=== PATIENT | male | born 1995 | race African-American/Black ===

== ENCOUNTER 2025-01-14 16:43 | Inpatient (IN) ==
--- NOTE | 2025-01-14 17:08 | Emergency Department Note ---
Impression & Plan Closed tripod fracture of left zygomaticomaxillary complex, Fracture of mandible, jaw angle, Laceration of scalp, Fall ED Provider Note NAME: STEPHANE [id number] RALPH AGE: 29 SEX: M : 1995 ARRIVES VIA: Walk-In INFORMANT: Patient, ED PROVIDER(S): Wayne Chaudhary DO CHIEF COMPLAINT: Fall HPI: The patient is a 29-year-old male who presented to the emergency department with a fall. The patient was in the shower at the shelter. He states that he slipped and fell. He states he struck the left side of his face on the shower stall. He does have a small laceration on his occipital scalp. The patient denies having any nausea or vomiting. He does complain of a headache. He denies having any chest pain or difficulty breathing. He denies having any back pain or leg pain. The patient does not think he lost consciousness. He is up-to-date with tetanus. ROS: See above HPI for pertinent positives & negatives. A total of 10 systems reviewed and were otherwise negative. PAST MEDICAL HISTORY: See Below PAST SURGICAL HISTORY: See Below FAMILY HISTORY: See Below SOCIAL HISTORY: See Below HOME MEDICATIONS: See Below ALLERGIES: See Below VITALS: See Below PHYSICAL EXAMINATION: Primary Survey Airway: Intact Breathing: Normal, breath sounds equal bilaterally Circulation: Skin warm, distal pulses 2+, capillary refill less than 2 seconds Disability Pupils: Equal and reactive to light, 4mm, brisk GCS: 15, Motor Function: Moves all extremities. Sensory: No deficits Secondary Survey GEN: Well developed and well-nourished HEAD: There is a small laceration on the left occipital scalp. No active bleeding was noted. EYES: Pupils round reactive to light, conjunctiva clear, extraocular movements intact, no raccoons eyes ENT: No fluid in external acoustic canals, no hemotympanum, no jurado's sign, nares patent, oropharynx clear. There is significant swelling over the left mandible. There was blood at the gumline. There is no obvious open fracture. There was slight malocclusion noted. NECK: No JVD, midline trachea, no cervical spine tenderness HEART: Regular rate and rhythm LUNGS: Clear to auscultation bilaterally. CHEST: Chest wall non-tender, no bruising/deformity ABD: There is no tenderness guarding rigidity. BACK: No step offs or deformities, T-L spine non tender EXT: 2+ global pulses, moving all extremities well, +5/5 muscle strength globally NEURO: The patient is awake alert and oriented x 3. There is no focal neurologic deficit. There was no facial droop. Speech was clear. MEDICAL DECISION MAKING: The patient is a 29-year-old male who presented to the emergency department for an evaluation after a fall. The patient states he fell in the shower at the shelter. The patient has significant swelling in the left side of his face. He also had malocclusion. He also had pain with opening his mouth. The patient also had a laceration on his scalp. I discussed the patient's laboratory and radiographic studies with him. He was found have multiple facial bone fractures. These will likely require surgical intervention. I discussed his condition with the oral maxillofacial surgeon. I also discussed his condition with the [facility]. They have agreed to evaluate the patient in the emergency department for further management and disposition. The patient was treated with IV antibiotics as well as IV pain medication. Triage Nursing notes reviewed. Prior medical records reviewed Vital Signs: reviewed and remarkable for elevated blood pressure. Differential diagnosis: Fracture, dislocation, contusion, intra-abdominal, pneumothorax, intrathoracic, intracranial, neurologic, compartment syndrome, rhabdomyolysis, as well as other pathologies. ER treatment provided: See below Diagnostics interpreted by me: ECG: none Cardiac Monitoring: An order was placed for continuous cardiac monitoring. The monitor shows a rate of 73 bpm with sinus rhythm. Laboratory studies: As stated above and show below. Imaging studies: See below. Radiographic imaging was reviewed by myself Consultation(s): I discussed this case with Dr. Feliz who is on for oral maxillofacial. I discussed this case with Dr. Maldonado who is on-call for the [facility] group. ED COURSE: Procedures: Location: Scalp Total length: 2.0 cm Complexity: Simple Verbal consent was obtained after the risks and benefits were explained, including but not limited to bleeding, scarring, infection, pain, and bone/nerve damage. At this time, the risks of the procedure are less than the risks of NOT performing the procedure. A time out was taken and the correct patient and site identified. The scalp was prepped with betadine. The target area was anesthetized with 5 ml of 1% lidocaine without epinephrine. Copious irrigation was performed using saline. The skin was re-prepped with betadine, the hair cleared from the wound, and a sterile field set. The wound was explored for foreign bodies and none found. Debridement was not performed. The wound edges were approximated using 4 surgical tasha in the standard fashion. Hemostasis and excellent approximation was achieved. Antibacterial ointment and a sterile dressing applied. Detailed wound care instructions and signs and symptoms of infection reviewed with the patient. No complications and the patient tolerated the procedure well. Past Med/Surg History Problem List (Updated 01/14/25 @ 21:52 by Wayne Chaudhary DO) Fall (Acute) Laceration of scalp (Acute) Closed tripod fracture of left zygomaticomaxillary complex (Acute) Fracture of mandible, jaw angle (Acute) Swelling of face Social History Feels Safe at Home: Yes Allergies Allergies Allergy/AdvReac Type Severity Reaction Status Date / Time No Known Allergies Allergy Unverified 01/14/25 19:31 Home Meds Home Medications Medication Instructions Recorded Confirmed doxepin 25 mg capsule 25 mg PO HS 01/14/25 01/14/25 Results & Data (ED) Vital Signs Vital Signs - 24 hr 01/14/25 16:45 01/14/25 18:42 01/14/25 19:00 Temperature 36.8 C Temperature Source Temporal Artery Scan Pulse Rate 69 Pulse Rate [Finger] 63 73 Pulse Rhythm Regular Pulse Strength Normal Respiratory Rate 19 18 18 Respiratory Effort / Characteristics Non-Labored Spontaneous Non-Labored Spontaneous Respiratory Depth Normal Normal Respiratory Pattern Regular Regular Blood Pressure 119/80 Blood Pressure [Right Arm] 148/100 H 156/93 H Blood Pressure Mean 93 Blood Pressure Mean [Right Arm] 116 114 Pulse Oximetry 97 100 96 Oxygen Delivery Method Room Air Room Air Sepsis Recent Fever Within 48 Hours No Sepsis New/Unexplained Change in Mental Status No Sepsis Action Taken by Nursing No Action Required 01/14/25 19:04 01/14/25 19:30 01/14/25 20:00 Temperature Temperature Source Pulse Rate 73 Pulse Rate [Finger] 69 73 Pulse Rhythm Pulse Strength Respiratory Rate 18 16 Respiratory Effort / Characteristics Non-Labored Spontaneous Non-Labored Spontaneous Respiratory Depth Normal Normal Respiratory Pattern Regular Regular Blood Pressure Blood Pressure [Right Arm] 153/106 H 128/75 Blood Pressure Mean Blood Pressure Mean [Right Arm] 121 92 Pulse Oximetry 98 97 Oxygen Delivery Method Room Air Room Air Sepsis Recent Fever Within 48 Hours Sepsis New/Unexplained Change in Mental Status Sepsis Action Taken by Nursing 01/14/25 20:30 01/14/25 21:00 Temperature Temperature Source Pulse Rate Pulse Rate [Finger] 79 73 Pulse Rhythm Pulse Strength Respiratory Rate 16 16 Respiratory Effort / Characteristics Non-Labored Spontaneous Non-Labored Spontaneous Respiratory Depth Normal Normal Respiratory Pattern Regular Regular Blood Pressure Blood Pressure [Right Arm] 140/84 154/81 H Blood Pressure Mean Blood Pressure Mean [Right Arm] 102 105 Pulse Oximetry 97 96 Oxygen Delivery Method Room Air Room Air Sepsis Recent Fever Within 48 Hours Sepsis New/Unexplained Change in Mental Status Sepsis Action Taken by [facility] Medications Current Medication List: was personally reviewed by me Laboratory Data Attestation: I reviewed the patient's lab results. 01/14/25 17:17 01/14/25 17:17 Lab Results 01/14/25 01/14/25 Range/Units 17:17 19:51 WBC 4.45 L (4.8-10.8) K/ul RBC 4.76 (4.70-6.10) M/uL Hgb 14.3 (14.0-18.0) g/dl Hct 42.6 (42.0-52.0) % MCV 89.5 (80.0-100.0) fL MCH 30.0 (25.0-34.0) pg MCHC 33.6 (32.0-36.0) g/dL RDW Std Deviation 43.2 (36.4-46.3) fL RDW Coeff of Tyshawn 13.2 (11.5-14.5) % Plt Count 252 (130-400) K/uL MPV 10.3 (9.4-12.4) fL Immature Gran % (Auto) 0.4 % Neut % (Auto) 65.5 % Lymph % (Auto) 22.5 % Holmes % (Auto) 8.1 % Eos % (Auto) 3.1 % Baso % (Auto) 0.4 % Neut # (Auto) 2.91 (1.40-6.50) K/uL Lymph # (Auto) 1.00 L (1.20-3.40) K/uL Holmes # (Auto) 0.36 (0.11-0.59) K/uL Eos # (Auto) 0.14 (0.00-0.50) K/uL Baso # (Auto) 0.02 (0.00-0.20) K/uL Immature Gran # (Auto) 0.02 (0.01-0.20) K/uL PT Cancelled 11.4 INR Cancelled 1.1 APTT Cancelled 31 PTT Ratio Cancelled 1.2 Sodium 138 (136-145) mmol/L Potassium 4.4 (3.5-5.1) mmol/L Chloride 104 (98-107) mmol/L Carbon Dioxide 28 (21-32) mmol/L Anion Gap 6 (3-11) BUN 14 (6-23) mg/dl Creatinine 1.06 (0.6-1.4) mg/dl Est Cr Clr Drug Dosing 138.7 ml/min eGFR 98.65 BUN/Creatinine Ratio 13.2 (10-20) Glucose 93 (70-99(Fasting)) mg/dl Calcium 9.8 (8.6-10.3) mg/dl Total Bilirubin 0.6 (0.2-1.0) mg/dl AST 30 (13-39) U/L ALT 19 (7-52) U/L Alkaline Phosphatase 57 (34-104) U/L Total Protein 8.4 H (6.0-8.3) gm/dl Albumin 4.7 (3.4-5.0) gm/dl Globulin 3.7 (2.5-4.0) gm/dl Albumin/Globulin Ratio 1.3 (0.9-2) Lipase 32 (11-82) U/L Administered Medications Hydromorphone HCl (Hydromorphone Inj 0.5 Mg/0.5 Ml Syr) 0.5 mg IV Q15M PRN PRN Reason: Pain Stop: 01/28/25 18:58 Last Admin: 01/14/25 20:45 Dose: 0.5 mg Documented By: Admin: 01/14/25 19:47 Dose: 0.5 mg Documented By: Admin: 01/14/25 19:05 Dose: 0.5 mg Documented By: JANE Discontinued Medications Hydromorphone HCl (Hydromorphone Inj 0.5 Mg/0.5 Ml Syr) 0.5 mg IV NOW STA Stop: 01/14/25 21:22 Last Admin: 01/14/25 21:33 Dose: 0.5 mg Documented By: JANE Sodium Chloride (Nss) 500 mls @ 999 mls/hr IV .Q31M MARLA Stop: 01/14/25 17:45 Last Infusion: 01/14/25 18:14 Dose: Infused Documented By: Admin: 01/14/25 17:28 Dose: 999 mls/hr Documented By: TE Ampicillin Sodium/Sulbactam Sodium (Unasyn) 3,000 mg in 100 mls @ 200 mls/hr IV NOW STA Stop: 01/14/25 17:32 Last Infusion: 01/14/25 18:14 Dose: Infused Documented By: Admin: 01/14/25 17:27 Dose: 200 mls/hr Documented By: TE Acetaminophen (Ofirmev) 1,000 mg in 100 mls @ 400 mls/hr IV NOW STA Stop: 01/14/25 21:35 Last Admin: 01/14/25 21:32 Dose: 400 mls/hr Documented By: JANE Lidocaine (Lidocaine/Epineph/Tetracaine 1 Ea Syr) 1 each EXT NOW STA Stop: 01/14/25 17:59 Last Admin: 01/14/25 18:08 Dose: 1 each Documented By: TE Lidocaine HCl (Lidocaine 1% Local 20 Ml Vial) 5 ml INFIL NOW ONE Stop: 01/14/25 18:30 Last Admin: 01/14/25 19:04 Dose: 5 ml Documented By: JANE Morphine Sulfate (Morphine Sulfate 4 Mg/Ml 1 Ml Carp\Vial) 4 mg IV NOW STA Stop: 01/14/25 17:04 Last Admin: 01/14/25 17:26 Dose: 4 mg Documented By: TE Morphine Sulfate (Morphine Sulfate 4 Mg/Ml 1 Ml Carp\Vial) 4 mg IV NOW STA Stop: 01/14/25 17:59 Last Admin: 01/14/25 18:08 Dose: 4 mg Documented By: TE Ondansetron HCl (Ondansetron Inj 2 Mg/Ml 2 Ml Vial) 4 mg IV NOW STA Stop: 01/14/25 17:04 Last Admin: 01/14/25 17:26 Dose: 4 mg Documented By: TE Imaging Data Attestation: I personally reviewed and interpreted this imaging study as follows: My Impression: CT of the brain was obtained in the emergency department. My interpretation is no intracranial hemorrhage or mass effect, final report below. Radiologist's Impression: Cervical Spine CT 01/14/25 17:03 Clinical history: Trauma Technique: Axial computed tomography images were obtained of the cervical spine without intravenous contrast. Sagittal and coronal reconstructions were obtained Findings: No definite cervical spine fracture is identified. There is a mild T1 compression fracture, likely old but of indeterminate age. No listhesis is seen. No focal osseous lesion is evident. The atlantoaxial articulation appears unremarkable. At C2-3, no disc herniation is identified. There is no spinal stenosis. The neural foramen are patent At C3-4, no disc herniation is identified. There is no spinal stenosis. The neural foramen are patent At C4-5, no disc herniation is identified. There is no spinal stenosis. The neural foramen are patent At C5-6, no disc herniation is identified. There is no spinal stenosis. The neural foramen are patent At C6-7, no disc herniation is identified. There is no spinal stenosis. The neural foramen are patent At C7-T1,no disc herniation is identified. There is no spinal stenosis. The neural foramen are patent The lung apices appear clear. The visualized soft tissues of the neck appear unremarkable. No foreign body is seen Impression: 1. No definite pathology of the cervical spine 2. Suspected mild T1 compression fracture, likely old but of indeterminate age Electronically signed by David Adkins 01-14-2025 6:01 PM Chest X-Ray 01/14/25 17:03 Clinical History: Trauma Technique: A frontal view of the chest was obtained Findings: There are no confluent pulmonary infiltrates. The heart size is within normal limits. No pleural effusion or pneumothorax is seen. There is no definite pulmonary nodule. No fracture is noted. No foreign body is seen Impression: No active disease Electronically signed by David Adkins 01-14-2025 5:[address] 01/14/25 17:03 Clinical history: Trauma Technique: Axial computed tomography images were obtained of the facial bones without intravenous contrast. Sagittal and coronal reconstructions were obtained Findings: There is an acute depressed comminuted fracture of the left zygomatic arch, with angulation and mild displacement of fracture fragments. There is an acute nondisplaced fracture of the left mandibular angle. No focal osseous lesion is noted. The temporomandibular joints appear unremarkable. There is mild mucosal thickening of the frontal, ethmoid and maxillary sinuses. No air-fluid level is seen. The ostiomeatal units appear patent bilaterally. The mastoid air cells appear clear The orbits appear unremarkable. No foreign body is seen. The nasal septum is mildly deviated. No definite nasal polyp is noted Impression: 1. Comminuted fracture of the left zygomatic arch with mild displacement and angulation of fracture fragments 2. Nondisplaced fracture of the left mandibular angle ACT 112: Positive. There are findings on this exam that require communication between the performing entity and the patient following Patient Test Result Information Act ([place] ACT 112) guidelines. Electronically signed by David Adkins 01-14-2025 5:[address] 01/14/25 17:03 CT head without contrast History: Trauma Comparison: None Technique: Using multidetector thin collimation helical acquisition technique, axial, coronal and sagittal CT images from the skull base to the vertex were obtained without intravenous contrast. Dose reduction techniques were achieved by using automatic exposure control and/or adjustment of mA and/or kV according to patient size and/or use of iterative reconstruction technique. Findings: No intracranial hemorrhage, mass-effect, or midline shift. The ventricles are proportionate to the cerebral sulci. The silva to white matter differentiation of the cerebral hemispheres is preserved. The basal cisterns are patent. The visualized paranasal sinuses are clear. Mastoid air cells are clear. Impression: No acute intracranial pathology. Electronically signed by Bryan Espinoza 01-14-2025 5:50 PM Pelvis X-Ray 01/14/25 17:03 Study: Pelvis 1 view History: Trauma Comparison: None Findings: There is no acute fracture or dislocation. Alignment is anatomic. Joint spaces are well maintained. There is no joint effusion or significant soft tissue swelling. Bone mineralization is normal. Impression: No acute bony abnormality Electronically signed by Bryan Espinoza 01-14-2025 5:27 PM Discharge Plan Visit Data Chief Complaint: Fall Stated Complaint: FALL ED Provider: Wayne Chaudhary Discharge Problem: Closed tripod fracture of left zygomaticomaxillary complex, Fracture of mandible, jaw angle, Laceration of scalp, Fall Patient Disposition: Being Evaluated by Hospitalist Condition: Fair Forms Stand Alone Forms: [facility] [place] Prescriptions Prescriptions: No Action doxepin 25 mg Capsule 25 mg PO HS Referrals Referrals: PCP,NO [Physician] -
[2025-01-14] MEDS: ONDANSETRON INJ 2 MG/ML 2 ML VIAL IV STA (17:26)
[2025-01-14] MEDS: MoRPHine SULFATE 4 MG/ML 1 ML CARP\\VIAL IV STA ×2 (17:26→18:08)
[2025-01-14] MEDS: AMPICILLIN/SULBACTAM SOD 3,000 MG/100 ML BAG IV STA (17:27)
--- NOTE | 2025-01-14 17:27 | XRay Report ---
Clinical History: Trauma Technique: A frontal view of the chest was obtained Findings: There are no confluent pulmonary infiltrates. The heart size is within normal limits. No pleural effusion or pneumothorax is seen. There is no definite pulmonary nodule. No fracture is noted. No foreign body is seen Impression: No active disease Electronically signed by David Adkins 01-14-2025 5:27 PM
[2025-01-14] MEDS: SODIUM CHLORIDE 0.9% 500 ML IV SCH (17:28)
--- NOTE | 2025-01-14 17:28 | XRay Report ---
Study: Pelvis 1 view History: Trauma Comparison: None Findings: There is no acute fracture or dislocation. Alignment is anatomic. Joint spaces are well maintained. There is no joint effusion or significant soft tissue swelling. Bone mineralization is normal. Impression: No acute bony abnormality Electronically signed by Bryan Espinoza 01-14-2025 5:27 PM
[2025-01-14 17:46] LABS: Alanine Aminotransferase 19.0 U/L (7-52); Albumin Globulin Ratio 1.3 (0.9-2); Alkaline Phosphatase 57.0 U/L (34-104); Anion Gap 6.0 (3-11); Bilirubin,Total 0.6 mg/dl (0.2-1.0); Blood Urea Nitrogen 14.0 mg/dl (6-23); Calcium 9.8 mg/dl (8.6-10.3); Carbon Dioxide 28.0 mmol/L (21-32); Chloride 104.0 mmol/L (98-107); Creatinine Clr Calc Pharmacy 138.7 ml/min; Globulin 3.7 gm/dl (2.5-4.0); Glucose 93.0 mg/dl (70-99(Fasting)); Lipase 32.0 U/L (11-82); Potassium 4.4 mmol/L (3.5-5.1); Sodium 138.0 mmol/L (136-145); Total Protein 8.4 gm/dl (6.0-8.3)
--- NOTE | 2025-01-14 17:51 | CT Scan Report ---
CT head without contrast History: Trauma Comparison: None Technique: Using multidetector thin collimation helical acquisition technique, axial, coronal and sagittal CT images from the skull base to the vertex were obtained without intravenous contrast. Dose reduction techniques were achieved by using automatic exposure control and/or adjustment of mA and/or kV according to patient size and/or use of iterative reconstruction technique. Findings: No intracranial hemorrhage, mass-effect, or midline shift. The ventricles are proportionate to the cerebral sulci. The silva to white matter differentiation of the cerebral hemispheres is preserved. The basal cisterns are patent. The visualized paranasal sinuses are clear. Mastoid air cells are clear. Impression: No acute intracranial pathology. Electronically signed by Bryan Espinoza 01-14-2025 5:50 PM
[2025-01-14 17:55] LABS: Hematocrit (blood only) 42.6 % (42.0-52.0); Hemoglobin 14.3 g/dl (14.0-18.0); Mean Corpuscular Volume 89.5 fL (80.0-100.0); Red Blood Count 4.76 M/uL (4.70-6.10); White Blood Count 4.45 K/ul (4.8-10.8)
[2025-01-14 17:56] LABS: Immature Granulocytes # (auto) 0.02 K/uL (0.01-0.20); Immature Granulocytes % (auto) 0.4 %; Mean Corpuscular Hemoglobin 30.0 pg (25.0-34.0); Platelet Count 252 K/uL (130-400); RDW Standard Deviation 43.2 fL (36.4-46.3)
--- NOTE | 2025-01-14 18:00 | CT Scan Report ---
Clinical history: Trauma Technique: Axial computed tomography images were obtained of the facial bones without intravenous contrast. Sagittal and coronal reconstructions were obtained Findings: There is an acute depressed comminuted fracture of the left zygomatic arch, with angulation and mild displacement of fracture fragments. There is an acute nondisplaced fracture of the left mandibular angle. No focal osseous lesion is noted. The temporomandibular joints appear unremarkable. There is mild mucosal thickening of the frontal, ethmoid and maxillary sinuses. No air-fluid level is seen. The ostiomeatal units appear patent bilaterally. The mastoid air cells appear clear The orbits appear unremarkable. No foreign body is seen. The nasal septum is mildly deviated. No definite nasal polyp is noted Impression: 1. Comminuted fracture of the left zygomatic arch with mild displacement and angulation of fracture fragments 2. Nondisplaced fracture of the left mandibular angle ACT 112: Positive. There are findings on this exam that require communication between the performing entity and the patient following Patient Test Result Information Act ([place] ACT 112) guidelines. Electronically signed by David Adkins 01-14-2025 5:59 PM
--- NOTE | 2025-01-14 18:03 | CT Scan Report ---
Clinical history: Trauma Technique: Axial computed tomography images were obtained of the cervical spine without intravenous contrast. Sagittal and coronal reconstructions were obtained Findings: No definite cervical spine fracture is identified. There is a mild T1 compression fracture, likely old but of indeterminate age. No listhesis is seen. No focal osseous lesion is evident. The atlantoaxial articulation appears unremarkable. At C2-3, no disc herniation is identified. There is no spinal stenosis. The neural foramen are patent At C3-4, no disc herniation is identified. There is no spinal stenosis. The neural foramen are patent At C4-5, no disc herniation is identified. There is no spinal stenosis. The neural foramen are patent At C5-6, no disc herniation is identified. There is no spinal stenosis. The neural foramen are patent At C6-7, no disc herniation is identified. There is no spinal stenosis. The neural foramen are patent At C7-T1,no disc herniation is identified. There is no spinal stenosis. The neural foramen are patent The lung apices appear clear. The visualized soft tissues of the neck appear unremarkable. No foreign body is seen Impression: 1. No definite pathology of the cervical spine 2. Suspected mild T1 compression fracture, likely old but of indeterminate age Electronically signed by David Adkins 01-14-2025 6:01 PM
[2025-01-14] MEDS: LIDOCAINE/EPINEPH/TETRACAINE 1 EA SYR EXT STA (18:08)
[2025-01-14] MEDS: LIDOCAINE 1% LOCAL 20 ML VIAL INFIL ONE (19:04)
[2025-01-14] MEDS: HYDROmorphone INJ 0.5 MG/0.5 ML SYR IV PRN (19:05)
[2025-01-14 21:07] LABS: INR 1.1 (0.9-1.1); Partial Thromboplastin Time 31 Seconds (21-31); Prothrombin Time 11.4 Seconds (9.0-12.0)
--- NOTE | 2025-01-14 21:27 | Oral/Maxillofacial Consult ---
Date of Consultation January 14, 2025 Assessment & Plan (1) Closed tripod fracture of left zygomaticomaxillary complex: left side depressed (2) Swelling of face: (3) Fracture of mandible, jaw angle: (4) Fall: (5) Laceration of scalp: History of Present Illness History of Present Illness Oral Maxillofacial Surgery Exam I saw Anna this morning in room 259. His left face is swollen, and the left ZMOC is depressed. He has difficulty opening his mouth but the occlusion is stable and reproducible. I do not feel any surgical treatment for the left angle fracture is needed as this looks to be a green stick non displaced fracture, soft diet for 3-4 will be needed. As for the left ZMOC an open approach is needed through the lateral brow area. The swelling will need to subside for 24 hours - will have his use ice and I will start steroids with surgery Sat am at 7:30. Present Complaint: I have pain left face from recent trauma Symptoms have been ongoing for 24 hours HPI: The patient is a 29-year-old male who presented to the emergency department with a fall. The patient was in the shower at the detention. He states that he slipped and fell. He states he struck the left side of his face on the shower stall. He does have a small laceration on his occipital scalp. The patient denies having any nausea or vomiting. He does complain of a headache. He denies having any chest pain or difficulty breathing. He denies having any back pain or leg pain. The patient does not think he lost consciousness. He is up-to-date with tetanus. Fractured left ZMOC, non displaced left angle fracture Oral Exam: Finding--normal exam , occlusion stable limited opening due to left ZMOC fracture and left angle fracture (green stick) Imaging: CT scan maxillofacial Clinical history: Trauma Findings: There is an acute depressed comminuted fracture of the left zygomatic arch, with angulation and mild displacement of fracture fragments. There is an acute nondisplaced fracture of the left mandibular angle. No focal osseous lesion is noted. The temporomandibular joints appear unremarkable. There is mild mucosal thickening of the frontal, ethmoid and maxillary sinuses. No air-fluid level is seen. The ostiomeatal units appear patent bilaterally. The mastoid air cells appear clear The orbits appear unremarkable. No foreign body is seen. The nasal septum is mildly deviated. No definite nasal polyp is noted Impression: 1. Comminuted fracture of the left zygomatic arch with mild displacement and angulation of fracture fragments 2. Nondisplaced fracture of the left mandibular angle Soft tissue: Swollen left lateral face and side of the jaw The floor of the mouth, tongue, hard/soft palate, posterior pharyngeal area all with in normal limits, no pathology or abnormal findings noted. Oral Care: Overall oral care is good Occlusion: Class I crowding but stable bite no shift, no pain on posterior pressure in the TMJ or lateral jaw area. Will treat left angle fracture with diet only no need for fixation or plating TMJ exam: limited opening from the fracture Periodontal exam: Healthy gingival tissue without evidence of periodontal pathology. Head/Neck exam: Neck is supple, FROM, Able to extend and flex neck w/o difficulty, no masses, no abnormalities, no airway issues, Treatment Plan: Set up with general anesthesia in hospitall due to complexity of the procedure I reviewed the treatment plan and consent with the patient Understanding was expressed. Time was given for questions regarding the surgery, risks and post op care. Discussed alternative to treatment--procedure as planned, Do not do surgery Open reduction left ZMOC Risks discussed: Bleeding,Pain,swelling,infection,delayed healing, nerve injury to face,lips,tongue,chin area which could be permanent (rare). TMJ, jaw stiffness, change in bite (rare), ear pain (referred). Sinus problems like congestion, fistula or infection. Surgery to be set up once swelling subsides hopefully January 16 PHYSICAL EXAMINATION: Primary Survey Airway: Intact Breathing: Normal, breath sounds equal bilaterally Circulation: Skin warm, distal pulses 2+, capillary refill less than 2 seconds Disability Pupils: Equal and reactive to light, 4mm, brisk GCS: 15, Motor Function: Moves all extremities. Sensory: No deficits Secondary Survey GEN: Well developed and well-nourished HEAD: There is a small laceration on the left occipital scalp. No active bleeding was noted. EYES: Pupils round reactive to light, conjunctiva clear, extraocular movements intact, no raccoons eyes ENT: No fluid in external acoustic canals, no hemotympanum, no jurado's sign, nares patent, oropharynx clear. There is significant swelling over the left mandible. There was blood at the gumline. There is no obvious open fracture. There was slight malocclusion noted. NECK: No JVD, midline trachea, no cervical spine tenderness HEART: Regular rate and rhythm LUNGS: Clear to auscultation bilaterally. CHEST: Chest wall non-tender, no bruising/deformity ABD: There is no tenderness guarding rigidity. BACK: No step offs or deformities, T-L spine non tender EXT: 2+ global pulses, moving all extremities well, +5/5 muscle strength globally NEURO: The patient is awake alert and oriented x 3. There is no focal neur ologic deficit. There was no facial droop. Speech was clear. ED COURSE: Procedures: Location: Scalp Total length: 2.0 cm Complexity: Simple Verbal consent was obtained after the risks and benefits were explained, including but not limited to bleeding, scarring, infection, pain, and bone/nerve damage. At this time, the risks of the procedure are less than the risks of NOT performing the procedure. A time out was taken and the correct patient and site identified. The scalp was prepped with betadine. The target area was anesthetized with 5 ml of 1% lidocaine without epinephrine. Copious irrigation was performed using saline. The skin was re-prepped with Betadine, the hair marcial ared from the wound, and a sterile field set. The wound was explored for foreign bodies and none found. Debridement was not performed. The wound edges were approximated using 4 surgical tasah in the standard fashion. Hemostasis and excellent approximation was achieved. Antibacterial ointment and a sterile dressing applied. Detailed wound care instructions and signs and symptoms of infection reviewed with the patient. No complications and the patient tolerated the procedure well. Vital Signs - 24 hr 01/15/2516:45 01/14/2518:42 01/14/2519:00 Temperature 36.8 C Temperature Source Temporal Artery Scan Pulse Rate 69 Pulse Rate [Finger] 63 73 Pulse Rhythm Regular Pulse Strength Normal Respiratory Rate 19 18 18 Respiratory Effort / Characteristics Non-Labored Spontaneous Non-Labored Spontaneous Respiratory Depth Normal Normal Respiratory Pattern Regular Regular Blood Pressure 119/80 Blood Pressure [Right Arm] 148/100 H 156/93 H Blood Pressure Mean 93 Blood Pressure Mean [Right Arm] 116 114 Pulse Oximetry 97 100 96 Oxygen Delivery Method Room Air Room Air Sepsis Recent Fever Within 48 Hours No Sepsis New/Unexplained Change in Mental Status No Sepsis Action Taken by Nursing No Action Required 01/14/2519:04 Temperature Temperature Source Pulse Rate 73 Pulse Rate [Finger] Pulse Rhythm Pulse Strength Respiratory Rate Respiratory Effort / Characteristics Respiratory Depth Respiratory Pattern Blood Pressure Blood Pressure [Right Arm] Blood Pressure Mean Blood Pressure Mean [Right Arm] Pulse Oximetry Oxygen Delivery Method Sepsis Recent Fever Within 48 Hours Sepsis New/Unexplained Change in Mental Status Sepsis Action Taken by Nursing Lab Results 01/14/25 Range/Units 17:17 WBC 4.45 L (4.8-10.8) K/ul RBC 4.76 (4.70-6.10) M/uL Hgb 14.3 (14.0-18.0) g/dl Hct 42.6 (42.0-52.0) % MCV 89.5 (80.0-100.0) fL MCH 30.0 (25.0-34.0) pg MCHC 33.6 (32.0-36.0) g/dL RDW Std Deviation 43.2 (36.4-46.3) fL RDW Coeff of Tyshawn 13.2 (11.5-14.5) % Plt Count 252 (130-400) K/uL MPV 10.3 (9.4-12.4) fL Immature Gran % (Auto) 0.4 % Neut % (Auto) 65.5 % Lymph % (Auto) 22.5 % [place] % (Auto) 8.1 % Eos % (Auto) 3.1 % Baso % (Auto) 0.4 % Neut # (Auto) 2.91 (1.40-6.50) K/uL Lymph # (Auto) 1.00 L (1.20-3.40) K/uL [place] # (Auto) 0.36 (0.11-0.59) K/uL Eos # (Auto) 0.14 (0.00-0.50) K/uL Baso # (Auto) 0.02 (0.00-0.20) K/uL Immature Gran # (Auto) 0.02 (0.01-0.20) K/uL PT Cancelled INR Cancelled APTT Cancelled PTT Ratio Cancelled Sodium 138 (136-145) mmol/L Potassium 4.4 (3.5-5.1) mmol/L Chloride 104 (98-107) mmol/L Carbon Dioxide 28 (21-32) mmol/L Anion Gap 6 (3-11) BUN 14 (6-23) mg/dl Creatinine 1.06 (0.6-1.4) mg/dl Est Cr Clr Drug Dosing 138.7 ml/min eGFR 98.65 BUN/Creatinine Ratio 13.2 (10-20) Glucose 93 (70-99(Fasting)) mg/dl Calcium 9.8 (8.6-10.3) mg/dl Total Bilirubin 0.6 (0.2-1.0) mg/dl AST 30 (13-39) U/L ALT 19 (7-52) U/L Alkaline Phosphatase 57 (34-104) U/L Total Protein 8.4 H (6.0-8.3) gm/dl Albumin 4.7 (3.4-5.0) gm/dl Globulin 3.7 (2.5-4.0) gm/dl Albumin/Globulin Ratio 1.3 (0.9-2) Lipase 32 (11-82) U/L Allergies Allergy/AdvReac Type Severity Reaction Status Date / Time No Known Allergies Allergy Unverified 01/14/25 19:31 Home Medications Medication Instructions Recorded Confirmed Type doxepin 25 mg capsule 25 mg PO HS 01/14/25 01/14/25 History Patient History Social History Smoking Status: Current every day smoker Tobacco Type: E-cigarettes / Vaping Hx Alcohol Use: No Hx Substance Use: Yes Last Used Substance Other:: 6 years ago Preferred Language: Upper Sorbian Nozzleman Required: No Beliefs That Will Affect Care: None Current Living Situation: Other Current Living Situation Comment: [facility] Feels Safe at Home: Yes Results & Data Vital Signs (Past 12 Hours) Vital Signs Temp Pulse Pulse Resp BP BP Pulse Ox 01/14/25 21:00 73 16 154/81 H 96 01/14/25 20:30 79 16 140/84 97 01/14/25 20:00 73 16 128/75 97 01/14/25 19:30 69 18 153/106 H 98 01/14/25 19:04 73 01/14/25 19:00 73 18 156/93 H 96 01/14/25 18:42 63 18 148/100 H 100 01/14/25 16:45 36.8 C 69 19 119/80 97 O2 Del Method 01/14/25 21:00 Room Air 01/14/25 20:30 Room Air 01/14/25 20:00 Room Air 01/14/25 19:30 Room Air 01/14/25 19:04 01/14/25 19:00 Room Air 01/14/25 18:42 01/14/25 16:45 Room Air PG Care Time/CCT Total # of Minutes Spent Total Time Spent with Patient: Total time spent is greater than 50% in coordination of care (as documented) at patient's floor/unit and/or counseling patient: Coding Level of Care Code 73924 IN/OBS CONSULT LVL 3,45M Diagnoses Closed tripod fracture of left zygomaticomaxillary complex S02.40FA; S02.40DA; S02.842A Swelling of face R22.0 Closed fracture of left mandibular angle, initial encounter S02.652A Encounter type: initial encounter Fracture type: closed Laterality: left Fall, subsequent encounter W19.XXXD Encounter type: subsequent encounter Laceration of scalp, subsequent encounter S01.01XD Encounter type: subsequent encounter CPT Codes OPEN [place] COMPLX MALAR FX - 61840 ([id number]) (3) Fracture of mandible, jaw angle Encounter type: initial encounter Fracture type: closed Laterality: left Qualified Code(s): S02.652A - Fracture of angle of left mandible, initial encounter for closed fracture (4) Fall Encounter type: subsequent encounter Qualified Code(s): W19.XXXD - Unspecified fall, subsequent encounter (5) Laceration of scalp Encounter type: subsequent encounter Qualified Code(s): S01.01XD - Laceration without foreign body of scalp, subsequent encounter
[2025-01-14] MEDS: ACETAMINOPHEN 1,000 MG/100 ML VIAL IV STA (21:32)
[2025-01-14] MEDS: HYDROmorphone INJ 0.5 MG/0.5 ML SYR IV STA (21:33)
--- NOTE | 2025-01-14 22:05 | History & Physical Report ---
Date of Service January 14, 2025 Assessment & Plan (1) Closed tripod fracture of left zygomaticomaxillary complex: Plan: 29-year-old male coming from residential with past medical history significant for insomnia and takes doxepin presents with fall. Patient states he slipped in the shower and fell on his face. States he might have lost consciousness for about a second when he hit his head. When he tried to get up ,he again slipped and fell on his arm. Finally he was able to get out of the shower. He noticed severe pain in his face and was brought to the ER. Imaging studies in the ER shows left mandibular and zygomatic arch fracture. ER spoke to maxillofacial surgery and there is a plan for surgery in a.m. Patient complaining of severe pain at injury site. Denies any blurred vision. Patient states no dizziness or palpitations or chest pain prior to fall. No nausea. No abdominal pain. Patient states had a fever about a 1 week ago but then after that no fevers. No nausea or vomiting. No diarrhea or constipation. Currently resting comfortably and hemodynamics are okay. Status post fall Closed Tripod fracture of left zygomaticomaxillary complex Left Mandibular fracture Plan for surgery in a.m. N.p.o. at midnight IV fluids Pain control Labs are okay. Vital stable. Should be at acceptable risk to proceed with surgery IV Unasyn DVT prophylaxis SCDs Disposition Med/telemetry Full code. History of Present Illness Chief Complaint: Status post fall. Left mandibular and zygomatic arch fracture Primary Care Provider: ARRON Murphy 29-year-old male coming from residential with past medical history significant for insomnia and takes doxepin presents with fall. Patient states he slipped in the shower and fell on his face. States he might have lost consciousness for about a second when he hit his head. When he tried to get up ,he again slipped and fell on his arm. Finally he was able to get out of the shower. He noticed severe pain in his face and was brought to the ER. Imaging studies in the ER shows left mandibular and zygomatic arch fracture. ER spoke to maxillofacial surgery and there is a plan for surgery in a.m. Patient complaining of severe pain at injury site. Denies any blurred vision. Patient states no dizziness or palpitations or chest pain prior to fall. No nausea. No abdominal pain. Patient states had a fever about a 1 week ago but then after that no fevers. No nausea or vomiting. No diarrhea or constipation. Currently resting comfortably and hemodynamics are okay. Past medical history. As mentioned above. Past surgical history. Denies any surgeries. Social history. Smokes e-cigarettes. Denies alcohol use. Used to take Subutex in the past about 2 years ago. Family history. Denies any family history. Allergies Allergy/AdvReac Type Severity Reaction Status Date / Time No Known Allergies Allergy Unverified 01/14/25 19:31 Home Medications Medication Instructions Recorded Confirmed Type doxepin 25 mg capsule 25 mg PO HS 01/14/25 01/14/25 History Past Med/Surg History Problem List (Updated 01/14/25 @ 21:52 by Wayne Chaudhary DO) Fall (Acute) Laceration of scalp (Acute) Closed tripod fracture of left zygomaticomaxillary complex (Acute) Fracture of mandible, jaw angle (Acute) Swelling of face Social History Smoking Status: Current every day smoker Tobacco Type: E-cigarettes / Vaping Hx Alcohol Use: No Hx Substance Use: Yes Last Used Substance Other:: 6 years ago Preferred Language: Scottish Career Advisor Required: No Beliefs That Will Affect Care: None Current Living Situation: Other Current Living Situation Comment: [facility] Feels Safe at Home: Yes Review of Systems Review of Systems: All systems reviewed & are unremarkable except as noted in HPI & below Physical Exam Physical Exam: General-Not in distress Head- Swelling of left side of face. Difficulty opening the mouth Eyes- PERRL. Neck- supple, no JVD. Lungs- clear to auscultation no wheezing or crackles Heart- regular rate and rhythm; no murmur, no gallop. Abdomen- normal bowel sounds, soft, nontender, no distension. Extremities- no pretibial edema, no erythema seen Neuro- alert, oriented PERRL, no dysarthria; moves extremities Results & Data Results & Data Vital Signs (Past 12 Hours) Vital Signs Temp Pulse Pulse Resp BP BP Pulse Ox 01/14/25 21:00 73 16 154/81 H 96 01/14/25 20:30 79 16 140/84 97 01/14/25 20:00 73 16 128/75 97 01/14/25 19:30 69 18 153/106 H 98 01/14/25 19:04 73 01/14/25 19:00 73 18 156/93 H 96 01/14/25 18:42 63 18 148/100 H 100 01/14/25 16:45 36.8 C 69 19 119/80 97 O2 Del Method 01/14/25 21:00 Room Air 01/14/25 20:30 Room Air 01/14/25 20:00 Room Air 01/14/25 19:30 Room Air 01/14/25 19:04 01/14/25 19:00 Room Air 01/14/25 18:42 01/14/25 16:45 Room Air Diagnostic Findings Laboratory Results WBC 4.45 K/ul (4.8-10.8) L 01/14/25 17:17 RBC 4.76 M/uL (4.70-6.10) 01/14/25 17:17 Hgb 14.3 g/dl (14.0-18.0) 01/14/25 17:17 Hct 42.6 % (42.0-52.0) 01/14/25 17:17 MCV 89.5 fL (80.0-100.0) 01/14/25 17:17 MCH 30.0 pg (25.0-34.0) 01/14/25 17:17 MCHC 33.6 g/dL (32.0-36.0) 01/14/25 17:17 RDW Std Deviation 43.2 fL (36.4-46.3) 01/14/25 17:17 RDW Coeff of Tyshawn 13.2 % (11.5-14.5) 01/14/25 17:17 Plt Count 252 K/uL (130-400) 01/14/25 17:17 MPV 10.3 fL (9.4-12.4) 01/14/25 17:17 Immature Gran % (Auto) 0.4 % 01/14/25 17:17 Neut % (Auto) 65.5 % 01/14/25 17:17 Lymph % (Auto) 22.5 % 01/14/25 17:17 [place] % (Auto) 8.1 % 01/14/25 17:17 Eos % (Auto) 3.1 % 01/14/25 17:17 Baso % (Auto) 0.4 % 01/14/25 17:17 Neut # (Auto) 2.91 K/uL (1.40-6.50) 01/14/25 17:17 Lymph # (Auto) 1.00 K/uL (1.20-3.40) L 01/14/25 17:17 [place] # (Auto) 0.36 K/uL (0.11-0.59) 01/14/25 17:17 Eos # (Auto) 0.14 K/uL (0.00-0.50) 01/14/25 17:17 Baso # (Auto) 0.02 K/uL (0.00-0.20) 01/14/25 17:17 Immature Gran # (Auto) 0.02 K/uL (0.01-0.20) 01/14/25 17:17 PT 11.4 Seconds (9.0-12.0) 01/14/25 19:51 INR 1.1 (0.9-1.1) 01/14/25 19:51 APTT 31 Seconds (21-31) 01/14/25 19:51 PTT Ratio 1.2 01/14/25 19:51 Sodium 138 mmol/L (136-145) 01/14/25 17:17 Potassium 4.4 mmol/L (3.5-5.1) 01/14/25 17:17 Chloride 104 mmol/L (98-107) 01/14/25 17:17 Carbon Dioxide 28 mmol/L (21-32) 01/14/25 17:17 Anion Gap 6 (3-11) 01/14/25 17:17 BUN 14 mg/dl (6-23) 01/14/25 17:17 Creatinine 1.06 mg/dl (0.6-1.4) 01/14/25 17:17 Est Cr Clr Drug Dosing 138.7 ml/min 01/14/25 17:17 eGFR 98.65 01/14/25 17:17 BUN/Creatinine Ratio 13.2 (10-20) 01/14/25 17:17 Glucose 93 mg/dl (70-99(Fasting)) 01/14/25 17:17 Calcium 9.8 mg/dl (8.6-10.3) 01/14/25 17:17 Total Bilirubin 0.6 mg/dl (0.2-1.0) 01/14/25 17:17 AST 30 U/L (13-39) 01/14/25 17:17 ALT 19 U/L (7-52) 01/14/25 17:17 Alkaline Phosphatase 57 U/L (34-104) 01/14/25 17:17 Total Protein 8.4 gm/dl (6.0-8.3) H 01/14/25 17:17 Albumin 4.7 gm/dl (3.4-5.0) 01/14/25 17:17 Globulin 3.7 gm/dl (2.5-4.0) 01/14/25 17:17 Albumin/Globulin Ratio 1.3 (0.9-2) 01/14/25 17:17 Lipase 32 U/L (11-82) 01/14/25 17:[address] 01/14/25 17:03 Clinical history: Trauma Technique: Axial computed tomography images were obtained of the cervical spine without intravenous contrast. Sagittal and coronal reconstructions were obtained Findings: No definite cervical spine fracture is identified. There is a mild T1 compression fracture, likely old but of indeterminate age. No listhesis is seen. No focal osseous lesion is evident. The atlantoaxial articulation appears unremarkable. At C2-3, no disc herniation is identified. There is no spinal stenosis. The neural foramen are patent At C3-4, no disc herniation is identified. There is no spinal stenosis. The neural foramen are patent At C4-5, no disc herniation is identified. There is no spinal stenosis. The neural foramen are patent At C5-6, no disc herniation is identified. There is no spinal stenosis. The neural foramen are patent At C6-7, no disc herniation is identified. There is no spinal stenosis. The neural foramen are patent At C7-T1,no disc herniation is identified. There is no spinal stenosis. The neural foramen are patent The lung apices appear clear. The visualized soft tissues of the neck appear unremarkable. No foreign body is seen Impression: 1. No definite pathology of the cervical spine 2. Suspected mild T1 compression fracture, likely old but of indeterminate age Electronically signed by David Adkins 01-14-2025 6:01 PM Chest X-Ray 01/14/25 17:03 Clinical History: Trauma Technique: A frontal view of the chest was obtained Findings: There are no confluent pulmonary infiltrates. The heart size is within normal limits. No pleural effusion or pneumothorax is seen. There is no definite pulmonary nodule. No fracture is noted. No foreign body is seen Impression: No active disease Electronically signed by David Adkins 01-14-2025 5:[address] 01/14/25 17:03 Clinical history: Trauma Technique: Axial computed tomography images were obtained of the facial bones without intravenous contrast. Sagittal and coronal reconstructions were obtained Findings: There is an acute depressed comminuted fracture of the left zygomatic arch, with angulation and mild displacement of fracture fragments. There is an acute nondisplaced fracture of the left mandibular angle. No focal osseous lesion is noted. The temporomandibular joints appear unremarkable. There is mild mucosal thickening of the frontal, ethmoid and maxillary sinuses. No air-fluid level is seen. The ostiomeatal units appear patent bilaterally. The mastoid air cells appear clear The orbits appear unremarkable. No foreign body is seen. The nasal septum is mildly deviated. No definite nasal polyp is noted Impression: 1. Comminuted fracture of the left zygomatic arch with mild displacement and angulation of fracture fragments 2. Nondisplaced fracture of the left mandibular angle ACT 112: Positive. There are findings on this exam that require communication between the performing entity and the patient following Patient Test Result Information Act ([place] ACT 112) guidelines. Electronically signed by David Adkins 01-14-2025 5:[address] 01/14/25 17:03 CT head without contrast History: Trauma Comparison: None Technique: Using multidetector thin collimation helical acquisition technique, axial, coronal and sagittal CT images from the skull base to the vertex were obtained without intravenous contrast. Dose reduction techniques were achieved by using automatic exposure control and/or adjustment of mA and/or kV according to patient size and/or use of iterative reconstruction technique. Findings: No intracranial hemorrhage, mass-effect, or midline shift. The ventricles are proportionate to the cerebral sulci. The silva to white matter differentiation of the cerebral hemispheres is preserved. The basal cisterns are patent. The visualized paranasal sinuses are clear. Mastoid air cells are clear. Impression: No acute intracranial pathology. Electronically signed by Bryan Espinoza 01-14-2025 5:50 PM Pelvis X-Ray 01/14/25 17:03 Study: Pelvis 1 view History: Trauma Comparison: None Findings: There is no acute fracture or dislocation. Alignment is anatomic. Joint spaces are well maintained. There is no joint effusion or significant soft tissue swelling. Bone mineralization is normal. Impression: No acute bony abnormality Electronically signed by Bryan Espinoza 01-14-2025 5:27 PM Code Status & VTE Plan VTE Prophylaxis Plan VTE Prophylaxis will be ordered: Yes
[2025-01-15] MEDS ORDERED: ONDANSETRON INJ 2 MG/ML 2 ML VIAL IV PRN (00:17)
[2025-01-15] MEDS: AMPICILLIN/SULBACTAM SOD 3,000 MG/100 ML BAG IV SCH (00:44)
[2025-01-15] MEDS: HYDROmorphone INJ 0.5 MG/0.5 ML SYR IV PRN ×2 (01:19→11:56)
[2025-01-15] MEDS: LACTATED RINGER'S 1,000 ML IV SCH (01:20)
[2025-01-15 06:51] LABS: Hematocrit (blood only) 39.8 % (42.0-52.0); Hemoglobin 13.1 g/dl (14.0-18.0); Immature Granulocytes # (auto) 0.02 K/uL (0.01-0.20); Immature Granulocytes % (auto) 0.4 %; Mean Corpuscular Hemoglobin 29.6 pg (25.0-34.0); Mean Corpuscular Volume 89.8 fL (80.0-100.0); Platelet Count 229 K/uL (130-400); RDW Standard Deviation 43.7 fL (36.4-46.3); Red Blood Count 4.43 M/uL (4.70-6.10); White Blood Count 5.11 K/ul (4.8-10.8)
[2025-01-15 07:17] LABS: Anion Gap 6.0 (3-11); Blood Urea Nitrogen 10.0 mg/dl (6-23); Calcium 8.9 mg/dl (8.6-10.3); Carbon Dioxide 28.0 mmol/L (21-32); Chloride 105.0 mmol/L (98-107); Creatinine Clr Calc Pharmacy 166.3 ml/min; Glucose 84.0 mg/dl (70-99(Fasting)); Magnesium 2.0 mg/dl (1.7-2.4); Potassium 3.7 mmol/L (3.5-5.1); Sodium 139.0 mmol/L (136-145)
[2025-01-15 07:21] LABS: Toxic Vacuolation 2+
[2025-01-15] MEDS: ACETAMINOPHEN 1,000 MG/100 ML VIAL IV PRN (07:46)
--- NOTE | 2025-01-15 14:43 | Hospitalist Progress Note ---
Date of Service January 15, 2025 Assessment & Plan (1) Closed tripod fracture of left zygomaticomaxillary complex: Plan: 29-year-old male coming from [facility] with past medical history significant for insomnia and takes doxepin presents admitted post fall. Patient states he slipped in the shower and fell on his face. States he might have lost consciousness for about a second when he hit his head. Status post fall with closed tripod fracture of left zygomaticomaxillary complex and left mandibular fracture Plan for surgery tomorrow a.m. after swelling is down N.p.o. at midnight IV fluids Pain control Labs are okay. Should be at acceptable risk to proceed with surgery IV Unasyn DVT prophylaxis SCDs Full code. Admission and Anticipated Discharge Date Admission Date: January 14, 2025 Subjective Chart, data and vital signs were reviewed. The vital signs are stable. Patient was seen at bedside with [facility] guards in attendance. Patient states he still having significant pain from the jaw fracture. He is scheduled for OR tomorrow. He is allowed clear liquids until then. Review of Systems Review of Systems: Constitutional- no fever; no weight loss Eyes- no acute visual changes ENT- no sinus drainage; no pharyngitis, has significant pain from jaw fracture Pulmonary- no cough, no wheezing, no shortness of breath Cardiac- no chest pain, no palpitations, no orthopnea, no dependent edema GI- no nausea, no vomiting, no diarrhea, no melena, no hematochezia - no dysuria, no hematuria Neuro- no headaches, no focal neurologic symptoms Psych- no anxiety, no depression Physical Exam Physical Exam: General- adult male seen at bedside Head- atraumatic Eyes- PERRL, EOMI, anicteric ENT- oropharynx clear Neck- supple, no JVD, no adenopathy, no thyromegaly; Lungs- clear to auscultation and percussion Heart- regular rhythm; no murmur, no gallop, no rub appreciated Abdomen- normal bowel sounds, soft, nontender, no masses or hepatosplenomegaly Extremities- no pretibial edema, no calf tenderness; peripheral pulses intact Neuro- alert, oriented x 3; PERRL, EOMI; no focal deficits Skin- warm & dry Results & Data Results & Data Vital Signs (Past 12 Hours) Vital Signs Temp Pulse Pulse Resp BP BP Pulse Ox 07/25/25 14:20 53 L 01/15/25 11:28 36.7 C 63 17 117/76 96 01/15/25 07:42 36.7 C 54 L 17 109/73 96 01/15/25 07:24 81 01/15/25 03:58 36.6 C 55 L 18 107/69 96 O2 Del Method 01/15/25 14:20 01/15/25 11:28 Room Air 01/15/25 07:42 Room Air 01/15/25 07:24 01/15/25 03:58 Room Air Laboratory Results Short CBC 01/14/25 01/15/25 Range/Units 17:17 06:27 WBC 4.45 L 5.11 (4.8-10.8) K/ul Hgb 14.3 13.1 L (14.0-18.0) g/dl Hct 42.6 39.8 L (42.0-52.0) % Plt Count 252 229 (130-400) K/uL BMP 01/14/25 01/15/25 17:17 06:27 Sodium 138 139 Potassium 4.4 3.7 Chloride 104 105 Carbon Dioxide 28 28 BUN 14 10 Creatinine 1.06 0.91 Glucose 93 84 Calcium 9.8 8.9 Liver Function 01/14/25 Range/Units 17:17 Total Bilirubin 0.6 (0.2-1.0) mg/dl AST 30 (13-39) U/L ALT 19 (7-52) U/L Alkaline Phosphatase 57 (34-104) U/L Albumin 4.7 (3.4-5.0) gm/dl Diagnostic Findings Laboratory Results WBC 5.11 K/ul (4.8-10.8) 01/15/25 06:27 RBC 4.43 M/uL (4.70-6.10) L 01/15/25 06:27 Hgb 13.1 g/dl (14.0-18.0) L 01/15/25 06:27 Hct 39.8 % (42.0-52.0) L 01/15/25 06:27 MCV 89.8 fL (80.0-100.0) 01/15/25 06:27 MCH 29.6 pg (25.0-34.0) 01/15/25 06:27 MCHC 32.9 g/dL (32.0-36.0) 01/15/25 06: RDW Std Deviation 43.7 fL (36.4-46.3) 01/15/25 06: RDW Coeff of Tyshawn 13.2 % (11.5-14.5) 01/15/25 06: Plt Count 229 K/uL (130-400) 01/15/25 06: MPV 9.5 fL (9.4-12.4) 01/15/25 06: Immature Gran % (Auto) 0.4 % 01/15/25 06: Neut % (Auto) 63.7 % 01/15/25 06: Lymph % (Auto) 23.1 % 01/15/25 06: Carolina % (Auto) 10.2 % 01/15/25 06: Eos % (Auto) 2.2 % 01/15/25 06: Baso % (Auto) 0.4 % 01/15/25 06: Neut # (Auto) 3.26 K/uL (1.40-6.50) 01/15/25 06:27 Lymph # (Auto) 1.18 K/uL (1.20-3.40) L 01/15/25 06:27 Carolina # (Auto) 0.52 K/uL (0.11-0.59) 01/15/25 06:27 Eos # (Auto) 0.11 K/uL (0.00-0.50) 01/15/25 06: Baso # (Auto) 0.02 K/uL (0.00-0.20) 01/15/25 06:27 Immature Gran # (Auto) 0.02 K/uL (0.01-0.20) 01/15/25 06:27 Toxic Vacuolation 2+ 01/14/25 17:17 PT 11.4 Seconds (9.0-12.0) 01/14/25 19:51 INR 1.1 (0.9-1.1) 01/14/25 19:51 APTT 31 Seconds (21-31) 01/14/25 19:51 PTT Ratio 1.2 01/14/25 19:51 Sodium 139 mmol/L (136-145) 01/15/25 06:27 Potassium 3.7 mmol/L (3.5-5.1) 01/15/25 06:27 Chloride 105 mmol/L (98-107) 01/15/25 06:27 Carbon Dioxide 28 mmol/L (21-32) 01/15/25 06:27 Anion Gap 6 (3-11) 01/15/25 06:27 BUN 10 mg/dl (6-23) 01/15/25 06:27 Creatinine 0.91 mg/dl (0.6-1.4) 01/15/25 06:27 Est Cr Clr Drug Dosing 166.3 ml/min 01/15/25 06:27 eGFR 118.47 01/15/25 06:27 BUN/Creatinine Ratio 11.0 (10-20) 01/15/25 06:27 Glucose 84 mg/dl (70-99(Fasting)) 01/15/25 06:27 Calcium 8.9 mg/dl (8.6-10.3) 01/15/25 06:27 Magnesium 2.0 mg/dl (1.7-2.4) 01/15/25 06:27 Total Bilirubin 0.6 mg/dl (0.2-1.0) 01/14/25 17:17 AST 30 U/L (13-39) 01/14/25 17:17 ALT 19 U/L (7-52) 01/14/25 17:17 Alkaline Phosphatase 57 U/L (34-104) 01/14/25 17:17 Total Protein 8.4 gm/dl (6.0-8.3) H 01/14/25 17:17 Albumin 4.7 gm/dl (3.4-5.0) 01/14/25 17:17 Globulin 3.7 gm/dl (2.5-4.0) 01/14/25 17:17 Albumin/Globulin Ratio 1.3 (0.9-2) 01/14/25 17:17 Lipase 32 U/L (11-82) 01/14/25 17:17 Nasal Screen MRSA (PCR) Negative (Negative) 01/15/25 01:[address] 01/14/25 17:03 Clinical history: Trauma Technique: Axial computed tomography images were obtained of the cervical spine without intravenous contrast. Sagittal and coronal reconstructions were obtained Findings: No definite cervical spine fracture is identified. There is a mild T1 compression fracture, likely old but of indeterminate age. No listhesis is seen. No focal osseous lesion is evident. The atlantoaxial articulation appears unremarkable. At C2-3, no disc herniation is identified. There is no spinal stenosis. The neural foramen are patent At C3-4, no disc herniation is identified. There is no spinal stenosis. The neural foramen are patent At C4-5, no disc herniation is identified. There is no spinal stenosis. The neural foramen are patent At C5-6, no disc herniation is identified. There is no spinal stenosis. The neural foramen are patent At C6-7, no disc herniation is identified. There is no spinal stenosis. The neural foramen are patent At C7-T1,no disc herniation is identified. There is no spinal stenosis. The neural foramen are patent The lung apices appear clear. The visualized soft tissues of the neck appear unremarkable. No foreign body is seen Impression: 1. No definite pathology of the cervical spine 2. Suspected mild T1 compression fracture, likely old but of indeterminate age Electronically signed by David Adkins 01-14-2025 6:01 PM Chest X-Ray 01/14/25 17:03 Clinical History: Trauma Technique: A frontal view of the chest was obtained Findings: There are no confluent pulmonary infiltrates. The heart size is within normal limits. No pleural effusion or pneumothorax is seen. There is no definite pulmonary nodule. No fracture is noted. No foreign body is seen Impression: No active disease Electronically signed by David Adkins 01-14-2025 5:[address] 01/14/25 17:03 Clinical history: Trauma Technique: Axial computed tomography images were obtained of the facial bones without intravenous contrast. Sagittal and coronal reconstructions were obtained Findings: There is an acute depressed comminuted fracture of the left zygomatic arch, with angulation and mild displacement of fracture fragments. There is an acute nondisplaced fracture of the left mandibular angle. No focal osseous lesion is noted. The temporomandibular joints appear unremarkable. There is mild mucosal thickening of the frontal, ethmoid and maxillary sinuses. No air-fluid level is seen. The ostiomeatal units appear patent bilaterally. The mastoid air cells appear clear The orbits appear unremarkable. No foreign body is seen. The nasal septum is mildly deviated. No definite nasal polyp is noted Impression: 1. Comminuted fracture of the left zygomatic arch with mild displacement and angulation of fracture fragments 2. Nondisplaced fracture of the left mandibular angle ACT 112: Positive. There are findings on this exam that require communication between the performing entity and the patient following Patient Test Result Information Act ([place] ACT 112) guidelines. Electronically signed by David Adkins 01-14-2025 5:[address] 01/14/25 17:03 CT head without contrast History: Trauma Comparison: None Technique: Using multidetector thin collimation helical acquisition technique, axial, coronal and sagittal CT images from the skull base to the vertex were obtained without intravenous contrast. Dose reduction techniques were achieved by using automatic exposure control and/or adjustment of mA and/or kV according to patient size and/or use of iterative reconstruction technique. Findings: No intracranial hemorrhage, mass-effect, or midline shift. The ventricles are proportionate to the cerebral sulci. The silva to white matter differentiation of the cerebral hemispheres is preserved. The basal cisterns are patent. The visualized paranasal sinuses are clear. Mastoid air cells are clear. Impression: No acute intracranial pathology. Electronically signed by Bryan Espinoza 01-14-2025 5:50 PM Pelvis X-Ray 01/14/25 17:03 Study: Pelvis 1 view History: Trauma Comparison: None Findings: There is no acute fracture or dislocation. Alignment is anatomic. Joint spaces are well maintained. There is no joint effusion or significant soft tissue swelling. Bone mineralization is normal. Impression: No acute bony abnormality Electronically signed by Bryan Espinoza 01-14-2025 5:27 PM
[2025-01-15] MEDS: MoRPHine SULFATE 10 MG/0.5 ML UDP PO PRN (17:31)
[2025-01-15] MEDS: DOXEPIN HCL 25 MG CAPSULE PO SCH (20:46)
--- NOTE | 2025-01-15 22:26 | Electrocardiogram Report ---
Test Reason : Blood Pressure : */* mmHG Vent. Rate : 64 BPM Atrial Rate : 64 BPM P-R Int : 214 ms QRS Dur : 90 ms QT Int : 402 ms P-R-T Axes : 45 31 26 degrees QTcB Int : 414 ms Sinus rhythm with 1st degree A-V block Cannot rule out Anterior infarct , age undetermined Abnormal ECG No previous ECGs available Confirmed by Albin Dias ([id number]) on 01/15/2025 10:25:45 PM Referred By: [facility] Confirmed By: Albin Dias
[2025-01-16] MEDS: HYDROmorphone INJ 0.5 MG/0.5 ML SYR IV STA (01:31)
[2025-01-16 06:29] LABS: Hematocrit (blood only) 37.3 % (42.0-52.0); Hemoglobin 12.7 g/dl (14.0-18.0); Mean Corpuscular Hemoglobin 30.5 pg (25.0-34.0); Mean Corpuscular Volume 89.7 fL (80.0-100.0); Platelet Count 237 K/uL (130-400); RDW Standard Deviation 42.7 fL (36.4-46.3); Red Blood Count 4.16 M/uL (4.70-6.10); White Blood Count 3.78 K/ul (4.8-10.8)
[2025-01-16 06:48] LABS: Anion Gap 5.0 (3-11); Blood Urea Nitrogen 5.0 mg/dl (6-23); Calcium 8.8 mg/dl (8.6-10.3); Carbon Dioxide 30.0 mmol/L (21-32); Chloride 106.0 mmol/L (98-107); Creatinine Clr Calc Pharmacy 159.9 ml/min; Glucose 87.0 mg/dl (70-99(Fasting)); Potassium 3.8 mmol/L (3.5-5.1); Sodium 141.0 mmol/L (136-145)
--- NOTE | 2025-01-16 08:08 | History & Physical Bridge Note ---
Date of Service January 16, 2025 History & Physical Bridge Note I have examined the patient, reviewed the History & Physical and in the interval since the performance of the History & Physical I have noted the following changes of clinical significance: no changes noted. OK for the open reduction left ZMOC
--- NOTE | 2025-01-16 08:18 | Progress Note ---
Date of Service January 16, 2025 Assessment & Plan Admission and Anticipated Discharge Date Admission Date: January 14, 2025 Subjective The swelling has decreased to the point that I can do the open reduction of the left ZMOC fracture. He does have a green stick fracture of the lower jaw (left angle and ? between teeth 27-28. Ther is no displacement, a very stable occlusion. I see no indication for any surgery or fixation as long as he maintains a soft diet for at least 3 weeks this fracture will heal uneventfully. The plan is for the reduction of the Left ZMOC today with discharge tomorrow. My office will communicate with [facility] regarding need for the soft diet, keep out of general population to avoid getting hit or pushed and follow up with my office. Soft diet is essential to allow the fractured lower jaw to heal Also avoiding pressure on the left cheek is needed to allow the left cheek bone fracture to heal as well. Results & Data Vital Signs (Past 12 Hours) Vital Signs Temp Pulse Pulse Resp BP BP Pulse Ox 01/16/25 07:42 36.7 C 52 L 18 122/76 98 01/16/25 07:16 50 L 01/16/25 03:49 36.4 C L 53 L 20 128/85 99 01/16/25 00:09 36.7 C 54 L 20 135/83 97 01/15/25 22:05 51 L O2 Del Method 01/16/25 07:42 Room Air 01/16/25 07:16 01/16/25 03:49 Room Air 01/16/25 00:09 Room Air 01/15/25 22:05 PG Care Time/CCT Total # of Minutes Spent Total Time Spent with Patient: Total time spent is greater than 50% in coordination of care (as documented) at patient's floor/unit and/or counseling patient: Coding Level of Care Code None
[2025-01-16] MEDS ORDERED: LIDOCAINE 2% 20 MG/ML 5 ML SYR IV ONE (08:22)
[2025-01-16] MEDS ORDERED: PROPOFOL IV EMULSION 10 MG/ML 20 ML VIAL IV ONE ×2 (08:22→09:05)
[2025-01-16] MEDS ORDERED: DEXAMETHASONE SOD INJ 4 MG/ML VIAL ONE (08:22)
[2025-01-16] MEDS ORDERED: ONDANSETRON INJ 2 MG/ML 2 ML VIAL ONE (08:22)
[2025-01-16] MEDS ORDERED: MIDAZOLAM HCL 1 MG/ML 2ML VIAL ONE (08:23)
[2025-01-16] MEDS ORDERED: ROCURONIUM BROMIDE 10 MG/ML 5 ML VIAL IV ONE ×2 (08:25→08:43)
[2025-01-16] MEDS ORDERED: DexMEDEtomidine HCL IV 100 MCG/ML VIAL IV ONE (08:36)
[2025-01-16] MEDS ORDERED: ATROPINE SULFATE 0.1 MG/ML 10ML SYR IV PRN (08:36)
--- NOTE | 2025-01-16 08:36 | Anesthesiology Consultation ---
Date of Service January 16, 2025 Assessment & Plan Chart Review Chart Review: Acceptable Risk for Surgery and Patient NOT seen in Pre Admission Testing Consults Requested none History Surgery Operation Date: 01/16/25 07:30 Proposed Procedures p Open Reduction Left Cheekbone Fracture - Sanjay Feliz, MARIJA Height/Weight Height: 6 ft 2 in Weight: 118.7 kg Allergies Allergy/AdvReac Type Severity Reaction Status Date / Time No Known Allergies Allergy Unverified 01/14/25 19:31 Medications Home Medications Medication Instructions Recorded Confirmed Last Taken doxepin 25 mg capsule 25 mg PO HS 01/14/25 01/14/25 01/14/25 Active Medications Generic Name Dose Route Start Last Admin Trade Name Freq PRN Reason Stop Dose Admin Doxepin HCl 25 mg 01/15/25 21:00 01/15/25 20:46 Doxepin Hcl 25 Mg Capsule PO 02/14/25 20:59 Not Given HS MARLA Hydroxyzine HCl 10 mg 01/15/25 11:37 01/15/25 16:27 Hydroxyzine Hcl 10 Mg Tab PO 02/14/25 11:36 10 mg Q8 PRN Administration Anxiety/Agitation Lactated Ringer's 1,000 mls @ 125 mls/hr 01/15/25 00:17 01/16/25 06:22 Lr IV 01/18/25 00:16 125 mls/hr .Q8H MARLA Infusion Acetaminophen 1,000 mg in 100 mls @ 400 mls/hr 01/15/25 00:17 01/15/25 08:06 Ofirmev IV 01/18/25 00:16 Infused Q8H PRN Infusion Pain or Fever Ampicillin Sodium/Sulbactam Sodium 3,000 mg in 100 mls @ 200 mls/hr 01/15/25 00:30 01/16/25 06:22 Unasyn IV 01/22/25 00:29 Infused Q6 MARLA Infusion Morphine Sulfate 10 mg 01/15/25 16:30 01/16/25 06:23 Morphine Sulfate 10 Mg/0.5 Ml Udp PO 01/29/25 16:29 10 mg Q3HWA PRN Administration Pain Social History Smoking Status: Current every day smoker Hx Alcohol Use: No Hx Substance Use: Yes substance use type: marijuana Last Used Substance Other:: 6 years ago Physical Exam Vital Signs Last Vital Signs Temp 36.7 C 01/16/25 07:42 Pulse 52 L 01/16/25 07:42 Resp 18 01/16/25 07:42 BP 122/76 01/16/25 07:42 Pulse Ox 98 01/16/25 07:42 O2 Del Method Room Air 01/16/25 07:42 Testing Laboratory Results 01/16/25 05:41 01/16/25 05:41 PT 11.4 Seconds (9.0-12.0) 01/14/25 19:51 INR 1.1 (0.9-1.1) 01/14/25 19:51 APTT 31 Seconds (21-31) 01/14/25 19:51
[2025-01-16] MEDS ORDERED: ARTIFICIAL TEARS OP OINT 3.5 GM TUBE ONE (08:53)
[2025-01-16] MEDS ORDERED: SUGAMMADEX SODIUM 200 MG/2 ML VIAL IV ONE (09:05)
[2025-01-16] MEDS: BUPIVACAINE/EPINEPHRINE 0.5% 1:200,000 1.8 ML CARP ONE (09:33)
[2025-01-16] MEDS: BACITRACIN OINT 14 GM TUBE ONE (09:34)
--- NOTE | 2025-01-16 09:55 | Post Operative Brief Note ---
PG Immediate Post Op with CF Date of Surgery January 16, 2025 Pre & Post Diagnosis Operation Date: 01/16/25 07:30 Pre-Op Diagnosis: 1. Closed tripod fracture of left zygomaticomaxillary complex: left side depressed 2. Swelling of face: 3. Fracture of mandible, jaw angle: Post-Op Diagnosis: 1. Closed tripod fracture of left zygomaticomaxillary complex: left side depressed 2. Swelling of face: 3. Fracture of mandible, jaw angle: I identified the patient and participated in the time-out.: Yes Procedure Operation Date: 01/16/25 07:30 Actual Procedures p Open Reduction Left Cheekbone Fracture(Left) - Sanjay Feliz DMD Surgeon Sanjay Feliz DMD Product Developer none Estimated Blood Loss 5 Findings Consistent with Post-Op Diagnosis depressed left ZMOC and arch non displaced green stick fracture lower jaw Complications none Disposition Accompanied Patient To Recovery: Yes
[2025-01-16] MEDS: HYDROmorphone INJ 2 MG/ML SYR/VIAL IV PRN (10:03)
[2025-01-16] MEDS: DROPERIDOL 5 MG/2 ML VIAL IV PRN (10:03)
--- NOTE | 2025-01-16 10:57 | XRay Report ---
XR facial bones min 3V routine CLINICAL HISTORY: left zygomatic arch COMPARISON: CT of 01/14/2025 FINDINGS: There are skin tasha at the left temporal scalp. Evaluation is limited due to overlap. N o significant displacement seen at the left zygomatic fracture or the left mandibular fracture. Paran shanta sinuses appear grossly clear. IMPRESSION: No significant displacement seen. ACT 112: Negative or not required by law. Electronically signed by: Jeffery Singer M.D. 01/16/2025 10:56 AM
--- NOTE | 2025-01-16 13:30 | Anesthesiology Progress Note ---
Date of Service January 16, 2025 Anesthesia Post Procedure Vital Signs Vital Signs: Temp Pulse Pulse Pulse Resp BP BP 01/16/25 11:29 36.5 C 55 L 18 114/82 01/16/25 11:11 36.5 C 62 116/76 01/16/25 10:45 53 L 16 117/76 01/16/25 10:30 36.8 C 55 L 14 126/76 01/16/25 10:20 56 L 16 124/80 01/16/25 10:10 60 16 129/78 01/16/25 10:00 36.2 C L 62 16 133/93 01/16/25 07:42 36.7 C 52 L 18 122/76 01/16/25 07:16 50 L 01/16/25 03:49 36.4 C L 53 L 20 128/85 01/16/25 00:09 36.7 C 54 L 20 135/83 01/15/25 22:05 51 L 01/15/25 19:55 36.8 C 59 L 20 119/80 01/15/25 15:42 36.9 C 59 L 17 120/72 01/15/25 14:20 53 L Pulse Ox O2 Del Method O2 Flow Rate 01/16/25 11:29 97 Room Air 01/16/25 11:11 98 Room Air 01/16/25 10:45 93 Room Air 01/16/25 10:30 94 Room Air 01/16/25 10:20 97 Nasal Cannula 1 01/16/25 10:10 99 Nasal Cannula 2 01/16/25 10:00 98 Nasal Cannula 3 01/16/25 07:42 98 Room Air 01/16/25 07:16 01/16/25 03:49 99 Room Air 01/16/25 00:09 97 Room Air 01/15/25 22:05 01/15/25 19:55 96 Room Air 01/15/25 15:42 96 Room Air 01/15/25 14:20 Pain Intensity Jaw: Pain Intensity: 8 Left Upper Cheek: Pain Intensity: 6 Transfer of Care Handoff Completed per policy Notes Mental Status: alert / awake / arousable Patient Amnestic to Procedure: Yes Nausea / Vomiting: adequately controlled Pain: adequately controlled Airway Patency, RR, SpO2: stable & adequate BP & HR: stable & adequate Hydration State: stable & adequate Anesthetic Complications: no major complications apparent and Pt Satisfied with anesthetic care
--- NOTE | 2025-01-16 15:13 | Hospitalist Progress Note ---
Date of Service January 16, 2025 Assessment & Plan (1) Closed tripod fracture of left zygomaticomaxillary complex: Plan: 29-year-old male coming from [facility] retirement with past medical history significant for insomnia and takes doxepin presents admitted post fall. Patient states he slipped in the shower and fell on his face. States he might have lost consciousness for about a second when he hit his head. Status post fall with closed tripod fracture of left zygomaticomaxillary complex and left mandibular fracture S/P reduction of the Left ZMOC soft diet Pain control Labs are stable Anticipate discharge tomorrow DVT prophylaxis SCDs Full code. Admission and Anticipated Discharge Date Admission Date: January 14, 2025 Subjective Chart, data and vital signs were reviewed. The vital signs are stable. Patient was seen at bedside with retirement guards in attendance. Patient states he still having significant pain from the jaw fracture. He is S/P reduction of the Left ZMOC done today. He complains of pain at the surgical and fracture site. He denies CP or SOB. No nausea or emesis. He is allowed a soft diet. Physical Exam Physical Exam: General- adult male seen at bedside Eyes- PERRL, EOMI, Lungs- clear to auscultation and percussion Heart- regular rhythm; no murmur, no gallop, no rub appreciated Extremities- no pretibial edema, no calf tenderness; peripheral pulses intact Skin- warm & dry Results & Data Results & Data Vital Signs (Past 12 Hours) Vital Signs Temp Pulse Pulse Pulse Resp BP BP 01/16/25 14:59 47 L 01/16/25 11:29 36.5 C 55 L 18 114/82 01/16/25 11:11 36.5 C 62 116/76 01/16/25 10:45 53 L 16 117/76 01/16/25 10:30 36.8 C 55 L 14 126/76 01/16/25 10:20 56 L 16 124/80 01/16/25 10:10 60 16 129/78 01/16/25 10:00 36.2 C L 62 16 133/93 01/16/25 07:42 36.7 C 52 L 18 122/76 01/16/25 07:16 50 L 01/16/25 03:49 36.4 C L 53 L 20 128/85 Pulse Ox O2 Del Method O2 Flow Rate 01/16/25 14:59 01/16/25 11:29 97 Room Air 01/16/25 11:11 98 Room Air 01/16/25 10:45 93 Room Air 01/16/25 10:30 94 Room Air 01/16/25 10:20 97 Nasal Cannula 1 01/16/25 10:10 99 Nasal Cannula 2 01/16/25 10:00 98 Nasal Cannula 3 01/16/25 07:42 98 Room Air 01/16/25 07:16 01/16/25 03:49 99 Room Air Laboratory Results Short CBC 01/16/25 Range/Units 05:41 WBC 3.78 L (4.8-10.8) K/ul Hgb 12.7 L (14.0-18.0) g/dl Hct 37.3 L (42.0-52.0) % Plt Count 237 (130-400) K/uL BMP 01/16/25 05:41 Sodium 141 Potassium 3.8 Chloride 106 Carbon Dioxide 30 BUN 5 L Creatinine 0.95 Glucose 87 Calcium 8.8
[2025-01-16] MEDS: ACETAMINOPHEN 325 MG TAB PO SCH (16:04)
[2025-01-16] MEDS: MoRPHine SULFATE 4 MG/ML 1 ML CARP\\VIAL IV PRN (18:14)
[2025-01-16] MEDS ORDERED: POLYETHYLENE (MIRALAX) 17 GM PACK PO PRN (20:43)
[2025-01-16] MEDS: LACTULOSE SYRUP 20 GM/30 ML UDC PO STA (21:43)
[2025-01-16] MEDS: POLYETHYLENE (MIRALAX) 17 GM PACK PO STA (21:43)
[2025-01-17 07:51] VITALS: PULSE 50; RESP 18; TEMP 98.1; O2SAT 98
--- NOTE | 2025-01-17 10:28 | Progress Note ---
Date of Service January 17, 2025 Assessment & Plan Admission and Anticipated Discharge Date Admission Date: January 14, 2025 Subjective ZMOC surgery post op note at 24 hours Excellent result, ROM improving Sutures and bandage in place Occlusion very stable with a reproducible bite. Facial alignment excellent XR`s reviewed nice alignment noted Discussed soft diet due to non displaced lower jaw fracture Reviewed post op care--diet, oral care, ice and follow up Next appointment set up for: Overall excellent result from recent reduction or left ZMOC fracture OK for return to [place] for continued follow up -- we will coordinate with [facility] to arrange follow up Results & Data Vital Signs (Past 12 Hours) Vital Signs Temp Pulse Pulse Resp BP Pulse Ox O2 Del Method 01/17/25 07:50 36.7 C 50 L 18 104/68 98 Room Air 01/17/25 07:34 48 L 01/17/25 02:59 36.6 C 44 L 20 136/82 97 Room Air 01/17/25 00:01 36.7 C 63 20 119/72 95 Room Air PG Care Time/CCT Total # of Minutes Spent Total Time Spent with Patient: Total time spent is greater than 50% in coordination of care (as documented) at patient's floor/unit and/or counseling patient: Coding Level of Care Code 78021 SUB INP/OBS CARE 07/18MIN
--- NOTE | 2025-01-17 10:37 | Discharge Summary ---
Date of Service January 17, 2025 [facility] [facility] [place] note at 24 hours Excellent result, ROM improving Sutures and bandage in place Occlusion very stable with a reproducible bite. Facial alignment excellent XR`s reviewed nice alignment noted Discussed soft diet due to non displaced lower jaw fracture Reviewed post op care--diet, oral care, ice and follow up Next appointment set up for: Dr Feliz discussed post op planning with [facility] nursing staff Overall excellent result from recent reduction or left ZMOC fracture OK for return to [facility] for continued follow up -- we will coordinate with [facility] to arrange follow up Admission HPI Per Admitting Provider 29-year-old male coming from shelter with past medical history significant for insomnia and takes doxepin presents with fall. Patient states he slipped in the shower and fell on his face. States he might have lost consciousness for about a second when he hit his head. When he tried to get up ,he again slipped and fell on his arm. Finally he was able to get out of the shower. He noticed severe pain in his face and was brought to the ER. Imaging studies in the ER shows left mandibular and zygomatic arch fracture. ER spoke to maxillofacial surgery and there is a plan for surgery in a.m. Patient complaining of severe pain at injury site. Denies any blurred vision. Patient states no dizziness or palpitations or chest pain prior to fall. No nausea. No abdominal pain. Patient states had a fever about a 1 week ago but then after that no fevers. No nausea or vomiting. No diarrhea or constipation. Currently resting comfortably and hemodynamics are okay. Past medical history. As mentioned above. Past surgical history. Denies any surgeries. Social history. Smokes e-cigarettes. Denies alcohol use. Used to take Subutex in the past about 2 years ago. Family history. Denies any family history. Discharge Data Consultations 01/14/25 19:26 Consult Oromaxillofacial Surgery Routine ED Decision to Admit Stat Procedures Performed Operation Date: 01/16/25 07:30 Actual Procedures p Open Reduction Left Cheekbone Fracture(Left) - Sanjay Feliz DMD Coding Level of Care Code None
--- NOTE | 2025-01-17 10:55 | Hospitalist Progress Note ---
Date of Service January 17, 2025 Assessment & Plan (1) Closed tripod fracture of left zygomaticomaxillary complex: Plan: 29-year-old male coming from [facility] senior living with past medical history significant for insomnia and takes doxepin presents admitted post fall. Patient states he slipped in the shower and fell on his face. States he might have lost consciousness for about a second when he hit his head. Status post fall with closed tripod fracture of left zygomaticomaxillary complex and left mandibular fracture S/P reduction of the Left ZMOC Stable postop day #1 soft diet Pain control Discharge back to [facility] today. Maxillofacial surgeon has already discussed with medical personnel at that facility. Admission and Anticipated Discharge Date Admission Date: January 14, 2025 Subjective Chart and data reviewed. Patient seen at bedside with 2 correctional guards with him. Patient is doing well postop day #1. Patient has been cleared for discharge by maxillofacial surgery. Patient's pain is under control with the current regimen. He denies chest pain, shortness of breath, nausea or vomiting. Physical Exam Physical Exam: General- adult male seen at bedside Eyes- PERRL, EOMI, Lungs- clear to auscultation and percussion Heart- regular rhythm; no murmur, no gallop, no rub appreciated Extremities- no pretibial edema, no calf tenderness; peripheral pulses intact Skin- warm & dry. Dressing is intact. There is no soaked through. Suture intact. Results & Data Results & Data Vital Signs (Past 12 Hours) Vital Signs Temp Pulse Pulse Resp BP Pulse Ox O2 Del Method 01/17/25 07:50 36.7 C 50 L 18 104/68 98 Room Air 01/17/25 07:34 48 L 01/17/25 02:59 36.6 C 44 L 20 136/82 97 Room Air 01/17/25 00:01 36.7 C 63 20 119/72 95 Room Air Diagnostic Findings Laboratory Results WBC 3.78 K/ul (4.8-10.8) L 01/16/25 05:41 RBC 4.16 M/uL (4.70-6.10) L 01/16/25 05:41 Hgb 12.7 g/dl (14.0-18.0) L 01/16/25 05:41 Hct 37.3 % (42.0-52.0) L 01/16/25 05:41 MCV 89.7 fL (80.0-100.0) 01/16/25 05:41 MCH 30.5 pg (25.0-34.0) 01/16/25 05:41 MCHC 34.0 g/dL (32.0-36.0) 01/16/25 05:41 RDW Std Deviation 42.7 fL (36.4-46.3) 01/16/25 05:41 RDW Coeff of Tyshawn 13.0 % (11.5-14.5) 01/16/25 05:41 Plt Count 237 K/uL (130-400) 01/16/25 05:41 MPV 10.0 fL (9.4-12.4) 01/16/25 05:41 Immature Gran % (Auto) 0.4 % 01/15/25 06:27 Neut % (Auto) 63.7 % 01/15/25 06:27 Lymph % (Auto) 23.1 % 01/15/25 06:27 Mcdowell % (Auto) 10.2 % 01/15/25 06:27 Eos % (Auto) 2.2 % 01/15/25 06:27 Baso % (Auto) 0.4 % 01/15/25 06:27 Neut # (Auto) 3.26 K/uL (1.40-6.50) 01/15/25 06:27 Lymph # (Auto) 1.18 K/uL (1.20-3.40) L 01/15/25 06:27 Mcdowell # (Auto) 0.52 K/uL (0.11-0.59) 01/15/25 06:27 Eos # (Auto) 0.11 K/uL (0.00-0.50) 01/15/25 06:27 Baso # (Auto) 0.02 K/uL (0.00-0.20) 01/15/25 06:27 Immature Gran # (Auto) 0.02 K/uL (0.01-0.20) 01/15/25 06:27 Toxic Vacuolation 2+ 01/14/25 17:17 PT 11.4 Seconds (9.0-12.0) 01/14/25 19:51 INR 1.1 (0.9-1.1) 01/14/25 19:51 APTT 31 Seconds (21-31) 01/14/25 19:51 PTT Ratio 1.2 01/14/25 19:51 Sodium 141 mmol/L (136-145) 01/16/25 05:41 Potassium 3.8 mmol/L (3.5-5.1) 01/16/25 05:41 Chloride 106 mmol/L (98-107) 01/16/25 05:41 Carbon Dioxide 30 mmol/L (21-32) 01/16/25 05:41 Anion Gap 5 (3-11) 01/16/25 05:41 BUN 5 mg/dl (6-23) L 01/16/25 05:41 Creatinine 0.95 mg/dl (0.6-1.4) 01/16/25 05:41 Est Cr Clr Drug Dosing 159.9 ml/min 01/16/25 05:41 eGFR 112.51 01/16/25 05:41 BUN/Creatinine Ratio 5.3 (10-20) L 01/16/25 05:41 Glucose 87 mg/dl (70-99(Fasting)) 01/16/25 05:41 Calcium 8.8 mg/dl (8.6-10.3) 01/16/25 05:41 Magnesium 2.0 mg/dl (1.7-2.4) 01/15/25 06:27 Total Bilirubin 0.6 mg/dl (0.2-1.0) 01/14/25 17:17 AST 30 U/L (13-39) 01/14/25 17:17 ALT 19 U/L (7-52) 01/14/25 17:17 Alkaline Phosphatase 57 U/L (34-104) 01/14/25 17:17 Total Protein 8.4 gm/dl (6.0-8.3) H 01/14/25 17:17 Albumin 4.7 gm/dl (3.4-5.0) 01/14/25 17:17 Globulin 3.7 gm/dl (2.5-4.0) 01/14/25 17:17 Albumin/Globulin Ratio 1.3 (0.9-2) 01/14/25 17:17 Lipase 32 U/L (11-82) 01/14/25 17:17 Nasal Screen MRSA (PCR) Negative (Negative) 01/15/25 01:[address] 01/14/25 17:03 Clinical history: Trauma Technique: Axial computed tomography images were obtained of the cervical spine without intravenous contrast. Sagittal and coronal reconstructions were obtained Findings: No definite cervical spine fracture is identified. There is a mild T1 compression fracture, likely old but of indeterminate age. No listhesis is seen. No focal osseous lesion is evident. The atlantoaxial articulation appears unremarkable. At C2-3, no disc herniation is identified. There is no spinal stenosis. The neural foramen are patent At C3-4, no disc herniation is identified. There is no spinal stenosis. The neural foramen are patent At C4-5, no disc herniation is identified. There is no spinal stenosis. The neural foramen are patent At C5-6, no disc herniation is identified. There is no spinal stenosis. The neural foramen are patent At C6-7, no disc herniation is identified. There is no spinal stenosis. The neural foramen are patent At C7-T1,no disc herniation is identified. There is no spinal stenosis. The neural foramen are patent The lung apices appear clear. The visualized soft tissues of the neck appear unremarkable. No foreign body is seen Impression: 1. No definite pathology of the cervical spine 2. Suspected mild T1 compression fracture, likely old but of indeterminate age Electronically signed by David Adkins 01-14-2025 6:01 PM Chest X-Ray 01/14/25 17:03 Clinical History: Trauma Technique: A frontal view of the chest was obtained Findings: There are no confluent pulmonary infiltrates. The heart size is within normal limits. No pleural effusion or pneumothorax is seen. There is no definite pulmonary nodule. No fracture is noted. No foreign body is seen Impression: No active disease Electronically signed by David Adkins 01-14-2025 5:[address] 01/14/25 17:03 Clinical history: Trauma Technique: Axial computed tomography images were obtained of the facial bones without intravenous contrast. Sagittal and coronal reconstructions were obtained Findings: There is an acute depressed comminuted fracture of the left zygomatic arch, with angulation and mild displacement of fracture fragments. There is an acute nondisplaced fracture of the left mandibular angle. No focal osseous lesion is noted. The temporomandibular joints appear unremarkable. There is mild mucosal thickening of the frontal, ethmoid and maxillary sinuses. No air-fluid level is seen. The ostiomeatal units appear patent bilaterally. The mastoid air cells appear clear The orbits appear unremarkable. No foreign body is seen. The nasal septum is mildly deviated. No definite nasal polyp is noted Impression: 1. Comminuted fracture of the left zygomatic arch with mild displacement and angulation of fracture fragments 2. Nondisplaced fracture of the left mandibular angle ACT 112: Positive. There are findings on this exam that require communication between the performing entity and the patient following Patient Test Result Information Act ([place] ACT 112) guidelines. Electronically signed by David Adkins 01-14-2025 5:[address] 01/14/25 17:03 CT head without contrast History: Trauma Comparison: None Technique: Using multidetector thin collimation helical acquisition technique, axial, coronal and sagittal CT images from the skull base to the vertex were obtained without intravenous contrast. Dose reduction techniques were achieved by using automatic exposure control and/or adjustment of mA and/or kV according to patient size and/or use of iterative reconstruction technique. Findings: No intracranial hemorrhage, mass-effect, or midline shift. The ventricles are proportionate to the cerebral sulci. The silva to white matter differentiation of the cerebral hemispheres is preserved. The basal cisterns are patent. The visualized paranasal sinuses are clear. Mastoid air cells are clear. Impression: No acute intracranial pathology. Electronically signed by Bryan Espinoza 01-14-2025 5:50 PM Pelvis X-Ray 01/14/25 17:03 Study: Pelvis 1 view History: Trauma Comparison: None Findings: There is no acute fracture or dislocation. Alignment is anatomic. Joint spaces are well maintained. There is no joint effusion or significant soft tissue swelling. Bone mineralization is normal. Impression: No acute bony abnormality Electronically signed by Bryan Espinoza 01-14-2025 5:27 PM Face X-Ray 01/16/25 10:24 XR facial bones min 3V routine CLINICAL HISTORY: left zygomatic arch COMPARISON: CT of 01/14/2025 FINDINGS: There are skin tasha at the left temporal scalp. Evaluation is limited due to overlap. No significant displacement seen at the left zygomatic fracture or the left mandibular fracture. Paranasal sinuses appear grossly clear. IMPRESSION: No significant displacement seen. ACT 112: Negative or not required by law. Electronically signed by: Jeffery Singer M.D. 01/16/2025 10:56 AM
[2025-01-17 11:45] VITALS: BP 116/76
--- NOTE | 2025-01-26 14:37 | Operative Report ---
PG Post Operative Report Pre & Post Diagnosis Operation Date: 01/16/25 07:30 Pre-Op Diagnosis: 1. Closed tripod fracture of left zygomaticomaxillary complex: left side depressed 2. Swelling of face: 3. Fracture of mandible, jaw angle: Post-Op Diagnosis: 1. Closed tripod fracture of left zygomaticomaxillary complex: left side depressed 2. Swelling of face: 3. Fracture of mandible, jaw angle: I identified the patient and participated in the time-out.: Yes Procedure Operation Date: 01/16/25 07:30 Actual Procedures p Open Reduction Left Cheekbone Fracture(Left) - Sanjay Feliz, MARIJA Surgeon Sanjay Feliz, MARIJA Semiautomatic Stitcher Operator none Estimated Blood Loss 5 Findings Consistent with Post-Op Diagnosis Specimens none Drains none Complications none Disposition Accompanied Patient To Recovery: Yes Indications depressed left ZMOC fracture Description of Procedure Pre & Post Diagnosis Pre-Op Diagnosis: Zygomatic Fracture Complex with displacement Post-Op Diagnosis: Zygomatic Fracture with displacement Diagnosis------Fracture of left Zygomatic arch with displacement Procedure: CPT 75859 open treatment of Zygomatic archn ICD 10---------S02.402B Estimated Blood Loss 5 Findings Consistent with Post-Op Diagnosis OPEN REDUCTION OF LEFT ZMOC FRACTURE Once cleared for surgery general anesthesia was achieved, the eyes were protected by the anesthesia dept criteria I placed corneal left eye shield with serial lubrication. A time out was take for patient ID, antibiotics, equipment and position verification once all agreed the procedure began. Local anesthesia was given into the ZF using Marcaine with a vasoconstrictor ( 1.8 ml per site. Once a surgical level of anesthesia was obtained and the local anesthesia was given time for the blocks the surgery was started. I turned my attention to the fractured ZMOC OPEN REDUCTION LEFTZMOC FRACTURE CPT 73445 ICD 10 S02.402B An incision of the left Zygomatic frontal suture line was made with a 15 blade. The electrosurgical needle was now used to incise through the muscle and periosteum to expose the displaced fractured ZF site. The Z-F was impacted medically and inferior. I was able to reflect the periosteal tissue to free up the site. I was now able to slide a Lyubov clamp behind the buttress of the left zygoma and with a lateral and superior force I was able to reduce the impacted ZMOC fracture. The fracture wasvery stable there was no need for any plate fixation. The ZMOC was now reduced and this improved the alignment of the ZMOC. At this time the ZMOC was well positioned intoanatomic form at the Z-F, inferior rim and buttress areas. Now that the arch, ZF, rim and buttress were well aligned and the fracture was extremely stable. All fracture lines were well aligned and stable. I irrigated the site Layeredclosure with 6-0 [place] 6-0 nylon was used to obtain cosmetic closure. A small pressure dressing was placed over the ZF area. Once the case was completed I inspected the sites to insure all bleeding was controlled. I removed corneal left eye shield Non displaced mandibular fracture There is also a non displaced left side mandibular fracture, the occlusion is stable and there is no movement at the fracture site I will treat this is conservative care -soft diet, non chew diet and follow up care At the completion of the case all instrument and sponge count was correct. The patient was allowed to awake from the anesthesia. Once full awake the anesthesia tube was removed and the patient was taken to the recovery room with all vital sign stable. The patient tolerated the surgery very well. I will follow the patient in my office, Rx and instructions will be given upon discharge. CPT 44822 ICD 10 S02.402B I attest to the content of the Intraoperative Record and any orders documented therein. Any exceptions are noted below.
== END 2025-01-17 12:24 | DRG 142 ==
LOC: ED 16:43 → SUATTDRO 21:28 → 2W 21:28